=== PATIENT | female | born 1965 | race Caucasian/White ===

== ENCOUNTER 2023-08-31 13:30 | Outpatient (RCR) | payer OTHER, SELFPAY ==
--- NOTE | 2023-08-17 13:17 | HP.PTEVAL_ITS ---
Patient's Visit Information Visit Information Visit Information: WILLIE GAO is a 57 year old F referred to Physical Therapy by TAI Paulino with a diagnosis of BPV. Date of Evaluation: 08/17/23 Physical Therapist: Dinesh Arzola, POOLT, OCS, CSCS Visit Plan Frequency: 1-2x /Week Duration: 2-4 Weeks Plan: 1-2x/week as needed to progress from current likey acute infection symptoms to normal and manage any possible positional vertigo, unilateral vestibular symptoms as they happen and rehab. Next session check positional and for nystagmus and need for balance/adaptation exercises. Today educated on managing symptoms with mani current meds, minimizing head movement and focus and Resting for the day, call if the dizzyness changes for the worse. Subjective Subjective: I have vertigo. I feel like I am on the teacup ride constantly since 6 am this am. Better with sitting still. [place]rington fine last night but thought she might have bronchitis,. Woke up this am to cuckoo clock. Jerked up and eyes weren;t open but got dizzy. Twirling never really stopped. Sat up and fell back asleep with head still. Now clinic told her she has sinus infection and called in antibiotic and anti dizzy pill. Here to check crystals in ears. Employed working own hours, book keeping. Could not do that today. Dresses self, Basic s are Ok but miserable feeling. Holding on to hensley to get around and keeping activity to a minimum. Holds on to furniture at home. Objective Objective: Walks in with friend hand in hand for balance. Head in hands posture often trying to minimize sensory input. Transfer I chair and bed. Able to move head but is hesitant and slow. , UE AROM WFL. Pt has consistent nystagmus R up beat, with gaze and at rest. Consistent with all motions of eyes today. - B hallpike jermaine, - roll test B but up trosional R nystagmus persists entire time. Balance/Special Test Scores Dizziness Score: 84 Goals Goal 1:: Ambulate into and out of PT without assistance Goal Time Frame: 2-4 Weeks Goal 2:: Dizzyness abolished Goal Time Frame: 2-4 Weeks Goal 3:: Pt feel 100% back to normal Goal Time Frame: 2-4 Weeks Rehabilitation Potential Physical Therapy Diagnosis: Likely acute vestibular infection R leading to dizzy symptoms and imbalance. Rehabilitation Potential: Good Anticipated Interventions Patient/Client Instruction: Educate patient on: Condition and Plan of Care For the Purpose of:: To decrease pain, To increase ROM, To improve nutrient delivery to tissue, To improve muscle performance and motor function, To increase tolerance to activity/condition/position and To improve ability of physical actions for home/community/work/leisure Therapeutic Exercise to Include: Balance training Comment: vestibular For the Purpose of:: To increase tolerance to activity/condition/position Text: Thank you for the opportunity to evaluate your patient. For Medicare and Medicare HMO plans, please review the plan of care and approve it. It will need to be FAXED BACK to us at [phone] for Medicare purposes. For Medicare only, by signing this I certify the plan of care. Please let me know if there are questions or concerns regarding this plan of care. Physician S ignature: Date:
--- NOTE | 2023-09-08 17:44 | HP.PTDCNRP_ITS ---
Patient Information Patient Information: WILLIE GAO was seen in my office for initial evaluation on 08/17/23. The following Plan of Care was established for this patient: POC Established Initial Frequency: 1-2x /Week Initial Duration: 2-4 Weeks Anticipated Interventions Patient/Client Instruction: Educate patient on: Condition and Plan of Care For the Purpose of:: To decrease pain, To increase ROM, To improve nutrient delivery to tissue, To improve muscle performance and motor function, To increase tolerance to activity/condition/position and To improve ability of ph ysical actions for home/community/work/leisure Therapeutic Exercise to Include: Balance training For the Purpose of:: To increase tolerance to activity/condition/position Last Seen Last Seen: This patient was last seen in our office 08/31/23. Pertinent comments regarding their Physical therapy will appear below: Pt seen 4 visits of POC and was 95% better at last visit. She was to f/u two weeks later but cancelled stating that she is doing well. Will discontinue at this time. At this point I will be discontinuing this patient from physical therapy. I would be happy to see this patient again in the future if found appropriate by the physician. Thank you! Dinesh Arzola, DPT, OCS, CSCS Balance/Gait/Functional tests Balance/Special Test Scores Functional Gait Assessment Score: 30 % Disability: 0 Dizziness Score: 84
== END 2023-08-31 19:00 | disposition home or self-care (01) ==
LOC: PT 13:30
PROVIDERS: Referring Provider Physician Assistant; Visit Provider Physician Assistant
DX: H81.10 Benign paroxysmal vertigo, unspecified ear (principal)
CPT/HCPCS: 97161; 97530